=== PATIENT | female | born 1960 | race American Indian/Alaskan Native ===

== ENCOUNTER → 2019-06-15 | Outpatient (CLI) | payer OTHER ==
[~2019-06-15] MED LIST: HYDR1TAB94 PO
[2019-06-17 15:18] LABS: HPV 16 Negative (Negative); HPV 18 Negative (Negative); HPV OTHER HR TYPES Negative (Negative)
== END ==
LOC: LAB 18:25 → LAB SHORT 18:25
PROVIDERS: Nurse Practitioner Family
DX: Z12.4 Encounter for screening for malignant neoplasm of cervix (principal)
CPT/HCPCS: 87624; G0123

== ENCOUNTER 2024-06-26 06:12 | Day surgery (SDC) | payer MEDICARE, OTHER ==
[~2024-06-26] VITALS: Ht 160 cm; Wt 36.3 kg
[~2024-06-26 06:12] MED LIST changes: +Lactated Ringer's 1,000 ML IV ONE
[2024-06-26] MEDS ORDERED: Acetaminophen650 M1 (06:29)
[2024-06-26] MEDS ORDERED: IBUP400 PO (06:29)
[2024-06-26] MEDS ORDERED: Lactated Ringer's 1,000 ML IV ONE ×2 (06:50→08:13)
[2024-06-26] MEDS ORDERED: HYDROCODONE-AC1 EA19 PO (07:01)
[2024-06-26] MEDS ORDERED: VITAMIN D32000 UNI1 PO (07:02)
[2024-06-26] MEDS ORDERED: Bupivacaine HCl 0.25% 50 ML Vial ONE (07:02)
[2024-06-26] MEDS ORDERED: FentaNYL Citrate 50 MCG/ML 2 ML Injection ONE ×2 (07:02→09:00)
[2024-06-26] MEDS ORDERED: Midazolam HCl 1MG / ML 2ML Vial ONE (07:02)
[2024-06-26] MEDS ORDERED: CeFAZolin Sodium 2,000 MG VIAL ONE (07:06)
[2024-06-26] MEDS ORDERED: NS 50 ML IV ONE (07:06)
[2024-06-26] MEDS ORDERED: propofoL 20 ML IV ONE (07:38)
--- NOTE | 2024-06-26 07:43 | NUR ---
06/26/24 0743 Gl[place] Paz TIME OUT PERFORMED AT BEDSIDE AT [address]T [address] DR MIRELES AT BEDSIDE. PT PLACED ON 3 LO2 VIA N/C AND ALL VS MONITORS. DR BUTT ADMINISTERED FENTANYL 50MCG IV X1 AND VERSED 2MG IV X1 PRIOR TO START OF BLOCK. AXILLARY NERVE BLOCK STARTED AT 0726 AND ENDED AT 0736. PT TOLERATED BLOCK WELL.
[2024-06-26] MEDS ORDERED: Ondansetron HCl 2 MG / ML 2ML Vial ONE (08:27)
[2024-06-26] MEDS ORDERED: Ketorolac Tromethamine 30mg Vial ONE (09:26)
--- NOTE | 2024-06-26 09:28 | NUR ---
06/26/24 0928 PALOMO GARCIA PT ON 3L O2 PER N/C O2 SAT WAS DIPPING INTO UPPER 80'S
[2024-06-26] MEDS ORDERED: HYDROmorphone HCl/Pf 1MG SYR ONE (09:46)
[2024-06-26 10:03] VITALS: BP 111/64
[2024-06-26] MEDS ORDERED: OxyCODONE HCL 5 MG TAB ONE (10:12)
== END 2024-06-26 10:39 | disposition home or self-care (01) ==
LOC: ORSCSDS 06:12
PROVIDERS: Orthopaedic Surgery
PROC: 0PSH04Z Reposition Right Radius with Internal Fixation Device, Open Approach (ICD-10-PCS; principal; 2024-06-26 07:30)
DX: S52.501A Unspecified fracture of the lower end of right radius, initial encounter for closed fracture (principal); W06.XXXA Fall from bed, initial encounter; M81.0 Age-related osteoporosis without current pathological fracture; F17.210 Nicotine dependence, cigarettes, uncomplicated
CPT/HCPCS: A9270; C1713; J0690; J1170; J1885; J2250; J2405; J2704; J3010; J7120

== ENCOUNTER 2025-05-24 05:55 | Day surgery (SDC) | payer MEDICARE, OTHER ==
[~2025-05-24] VITALS: Ht 160 cm; Wt 36.1 kg
[2025-05-24] VITALS (8 sets, daily range): BP systolic 116–137; BP diastolic 70–92
[~2025-05-24 05:55] MED LIST changes: +Acetaminophen650 M1; +C COMPLEX1000 M1 PO; +CALCIUM 600-D31 EAC2 PO; +FERSU300 PO; +HYDROCODONE-AC1 EA19 PO; +IBUP200 PO; +IBUP400 PO; -Lactated Ringer's 1,000 ML IV ONE; +MAGNESIUM OXID500 MG PO; +MULTI-VITAMIN1 EAC2 PO; +POTA8; +THERA-D2000 UNIT PO; +VITAMIN D32000 UNI1 PO; +Vitamin B Comple1 EA PO; +XCELLENT A 33000 MCG PO
[2025-05-24] MEDS ORDERED: CeFAZolin Sodium 2,000 MG in NS 100 ML IV SCH (06:15)
--- NOTE | 2025-05-24 06:59 | NUR ---
Ambulatory in Day Surgery WITH STEADY GAIT. History, Chart, Medications and Allergies reviewed before start of procedure. Pre-Op teaching done. Pt verbalizes understanding. Patient States Post-Procedure ride home has been arranged WITH DAUGHTER IN LAW. BELONGINGS PLACED UNDER GURN. GLASSES PLACED IN PACU WITH PT STITCHDOWN TOE FORMER THEM.
[2025-05-24] MEDS ORDERED: FentaNYL Citrate 50 MCG/ML 2 ML Injection ONE (07:07)
[2025-05-24] MEDS ORDERED: Dexamethasone Sod Phos 10 MG/ML 1ML VIAL ONE (07:10)
[2025-05-24] MEDS ORDERED: Ondansetron HCl 2 MG / ML 2ML Vial ONE (07:10)
[2025-05-24] MEDS ORDERED: Bupivacaine 0.5% HCl 5 MG/ML 30MLVIAL ONE (07:13)
[2025-05-24] MEDS ORDERED: Phenylephrine HCl 100 MCG/ML-NS 10MLSYR (1MG/10ML) ONE (07:43)
[2025-05-24] MEDS ORDERED: FentaNYL Citrate 50 MCG/ML 2 ML Injection IV PRN ×3 (08:00→08:05)
[2025-05-24] MEDS ORDERED: Metoclopramide HCl 5MG / ML 2ML Vial IV PRN (08:00)
[2025-05-24] MEDS ORDERED: Ondansetron HCl 2 MG / ML 2ML Vial IV PRN (08:00)
[2025-05-24] MEDS ORDERED: HYDROmorphone HCl/Pf 1MG SYR IV PRN (08:05)
[2025-05-24] MEDS ORDERED: HYDROcodone 5-APAP 325 TAB PO PRN (08:35)
--- NOTE | 2025-05-24 09:56 | NUR ---
DISCHARGE NOTE PT A&OX4, BREATHING RA, VSS, TOLERATING PO INTAKE. ICE TO INCISION. Patient up to Ambulate independently. Gait steady. Discharge instructions reviewed with patient. Patient verbalizes understanding. Copy given to patient to take home. Dressing to procedure site clean, dry, intact with no visible drainage, swelling, erythema or bruising noted. Discharged via wheelchair to private car for ride home.
== END 2025-05-24 09:50 | disposition home or self-care (01) ==
LOC: ORSCMMR 05:55 → ORD 07:30 → ORSCMMR 07:30
PROVIDERS: Surgery
PROC: 0YU80JZ Supplement Left Femoral Region with Synthetic Substitute, Open Approach (ICD-10-PCS; principal; 2025-05-24 07:30)
PROC: 3E0M05Z Introduction of Adhesion Barrier into Peritoneal Cavity, Open Approach (ICD-10-PCS; principal; 2025-05-24 07:30)
DX: K41.30 Unilateral femoral hernia, with obstruction, without gangrene, not specified as recurrent (principal); F17.210 Nicotine dependence, cigarettes, uncomplicated; J44.9 Chronic obstructive pulmonary disease, unspecified; R63.0 Anorexia; E78.5 Hyperlipidemia, unspecified
CPT/HCPCS: A9270; C1781; J0690; J1100; J2371; J2405; J2704; J3010; J7120